=== PATIENT | female | born 1955 | race Two or more races ===

== ENCOUNTER 2025-04-09 22:13 | Emergency (ER) | payer MEDICARE ==
[~2025-04-09] VITALS: Ht 162.6 cm; Wt 104.3 kg
[2025-04-09] MEDS ORDERED: LEVETIRACETAM (500MG) 500 MG/5 ML VIAL IV ONE (22:30)
[2025-04-09] MEDS: LEVETIRACETAM (500MG) 500 MG in IV NS 0.9% 100 ML IV ONE (22:32)
[2025-04-09 22:43] LABS: PLATELET COUNT (AUTO) 231 K/uL (150-450); RED BLOOD CELL COUNT(AUTO) 4.65 MIL/uL (4.0-5.2); RED CELL DISTRIBUTION WIDTH 13.2 % (11.5-15.0); WHITE BLOOD COUNT (AUTO) 12.3 K/uL (4.3-11.0)
[2025-04-09 22:48] LABS: CALCIUM, SERUM 9.9 mg/dL (8.5-10.1); CREATININE 1.5 mg/dL (0.6-1.3); SODIUM SERUM 140 mmol/L (136-145); UREA NITROGEN, BLOOD 16 mg/dL (7-18)
[2025-04-09 22:55] LABS: ASPARTATE AMINOTRANSFERASE 26 U/L (15-37); TOTAL PROTEIN, SERUM 7.3 g/dL (6.4-8.2)
[2025-04-09 22:56] LABS: ALCOHOL, BLOOD < 3 mg/dL (0-10)
[2025-04-09 22:57] LABS: INR 1.02 (0.91-1.10)
[2025-04-09 22:59] LABS: APPEARANCE,URINE CLEAR (CLEAR); BLOOD, URINE TRACE-INTA Ery/uL (NEGATIVE); LEUKOCYTE ESTERASE ,URINE NEGATIVE (NEGATIVE); NITRITE, URINE NEGATIVE (NEGATIVE); UGLUCOSE NEGATIVE (NEGATIVE)
[2025-04-09 23:13] LABS: AMPHETAMINE, URINE NEGATIVE (NEGATIVE); BARBITURATE, URINE NEGATIVE (NEGATIVE); BENZODIAZEPINE, URINE NEGATIVE (NEGATIVE); CANNABINOID, URINE NEGATIVE (NEGATIVE); COCCAINE, URINE NEGATIVE (NEGATIVE); OPIATE, URINE NEGATIVE (NEGATIVE)
[2025-04-09 23:15] LABS: ADD URINE CULTURE NO
[2025-04-09] MEDS ORDERED: AZIT250T PO (23:39)
[2025-04-09 23:50] VITALS: BP 148/69; TEMP 98.2; O2SAT 96
== END 2025-04-09 23:50 | disposition home or self-care (01) ==
LOC: ER 22:18
DX: G40.909 Epilepsy, unspecified, not intractable, without status epilepticus (principal); J18.9 Pneumonia, unspecified organism; I10 Essential (primary) hypertension; E05.90 Thyrotoxicosis, unspecified without thyrotoxic crisis or storm; R06.02 Shortness of breath; Z60.2 Problems related to living alone
CPT/HCPCS: 99285; 96365; 93005; 71045; 85025; 80048; 80076; 81001; 36415; 85730; 82962; 80320; 80307; J7030; J1953 ×2; G0480